=== PATIENT | female | born 1970 | race Caucasian/White ===

== ENCOUNTER 2017-06-11 14:02 | Inpatient (IN) | payer OTHER ==
[~2017-06-11] VITALS: Ht 154.9 cm; Wt 74.5 kg
[2017-06-11] MEDS ORDERED: ONDANSETRON INJ 2 MG/ML 2 ML VIAL IV STA (14:19)
[2017-06-11] MEDS ORDERED: KETOROLAC TROMETHAMINE 30 MG/ML VIAL IV STA (14:19)
[2017-06-11] MEDS ORDERED: SODIUM CHLORIDE 0.9% 1000ML 2,000 ML IV STA (14:19)
[2017-06-11] MEDS ORDERED: OPTIRAY 320 IV PRN (14:30)
[2017-06-11 14:31] LABS: BASO % 0.2 %; BASO ABS # 0.03 K/uL (0-0.2); EOS % 0.2 %; EOS ABS # 0.03 K/uL (0-0.5); HEMATOCRIT 42.1 % (37-47); HEMOGLOBIN 14.1 g/dL (12.0-16.0); IG# 0.07 K/uL (0.00-0.02); LYMPH % 10.2 %; LYMPH ABS # 1.91 K/uL (1.2-3.4); MEAN CELL VOLUME 86.1 fL (80-100); MEAN CORPUSCULAR HEMOGLOBIN 28.8 pg (25-34); MEAN CORPUSCULAR HGB CONC 33.5 g/dl (32-36); MEAN PLATELET VOLUME 9.5 fL (7.4-10.4); MONO % 5.5 %; MONO ABS # 1.03 K/uL (0.11-0.59); NEUT % 83.5 %; NEUT ABS # 15.67 K/uL (1.4-6.5); PLATELET COUNT 307 K/uL (130-400); RED CELL DISTRIBUTION WIDTH CV 12.9 % (11.5-14.5); RED CELL DISTRIBUTION WIDTH SD 40.7 fL (36.4-46.3); WHITE BLOOD COUNT 18.74 K/uL (4.8-10.8)
[2017-06-11 14:49] LABS: ALBUMIN 3.9 gm/dl (3.4-5.0); CALCIUM 10.9 mg/dl (8.5-10.1); CREATININE 1.19 mg/dl (0.60-1.20); POTASSIUM 3.6 mmol/L (3.5-5.1)
[2017-06-11 14:52] LABS: TOTAL PROTEIN 7.8 gm/dl (6.4-8.2)
[2017-06-11] MEDS ORDERED: MISCCAP80 PO (15:40)
[2017-06-11] MEDS ORDERED: MAGN400T6 PO (15:40)
[2017-06-11] MEDS ORDERED: FLUO10CA48 PO (15:40)
[2017-06-11] MEDS ORDERED: CHOL1000 PO (15:40)
--- NOTE | 2017-06-11 16:06 | EMERGENCY ROOM VISIT NOTE ---
History Report prepared by Sofie: Arturo Ugarte Under the Supervision of: Dr. Richard Ren M.D. First contact with patient: 14:15 Chief Complaint: ABDOMINAL PAIN Stated Complaint: PAIN TNEDERNESS IN LOWER RIGHT ABDOMIN Nursing Triage Summary: triage note: to reports right lower abd pain and nausea since last night. pt seen at [facility] and sent to ed for further eval. History of Present Illness The patient is a 46 year old female who presents to the Emergency Room with complaints of worsening abdominal pain that is localized to the right lower abdominal quadrant. The patient states that her pain began last night, but significantly worsened this morning when she woke up. She rates her current pain as a 7-8/10 in severity. She states that vomiting seems to relieve the pain for a short time, and the pain seems to radiate into the back intermittently. The patient also developed diarrhea last night, and began vomiting today at 1200. [facility], and was referred to the ED immediately. They gave her 2 oral Zofran tablets. The patient has no history of abdominal surgeries or diverticulitis. Source of History: patient Onset: Last Night Position: abdomen (RLQ) Symptom Intensity: 7-8/10 Timing: worsening Modifying Factors (Relieving): other (Vomiting) Associated Symptoms: + vomiting, + back pain (radiation from the abdomen), + diarrhea Review of Systems See HPI for pertinent positives & negatives. A total of 10 systems reviewed and were otherwise negative. Past Medical & Surgical Medical Problems: (1) Anxiety None significant. Family History Cancer Social History Smoking Status: Never Smoker Drug Use: none Marital Status: Housing Status: lives with family Occupation Status: employed Current/Historical Medications Scheduled Cholecalciferol (Vitamin D3), 1 TAB PO DAILY Fluoxetine (Prozac), 10 MG PO DAILY Magnesium Oxide (Mag-Ox), 400 MG PO DAILY Probiotic Product (Probiotic), 1 CAP PO DAILY Allergies Coded Allergies: No Known Allergies (Unverified , 06/11/17) Physical Exam Vital Signs Date Time Temp Pulse Resp B/P (MAP) Pulse Ox O2 Delivery O2 Flow Rate FiO2 06/11/17 16:05 82 20 120/56 100 Room Air 06/11/17 14:11 36.5 85 18 129/79 99 Room Air Physical Exam GENERAL: Occasional dry-heaving noted. Patient is in no acute distress. HEENT: No acute trauma, normocephalic atraumatic, mucous membranes moist, no nasal congestion, no scleral icterus. NECK: No stridor, no adenopathy, no meningismus, trachea is midline. LUNGS: Clear to auscultation bilaterally, no wheeze, no rhonchi, breath sounds equal. HEART: Without murmurs gallops or rubs, regular rate and rhythm. ABDOMEN: Soft, with moderate tenderness to palpation in the lower abdomen, in both lower quadrants. Mildly tender in the epigastrium. Bowel sounds positive, no hernias, no peritonitis. EXTREMITIES: No cyanosis or edema, full range of motion of all the joints without pain or difficulty, no signs for acute trauma. NEUROLOGIC: Oriented x 3, no acute motor or sensory deficits, no focal weakness. SKIN: No rash, no jaundice, no diaphoresis. Medical Decision & Procedures ER Provider Diagnostic Interpretation: Radiology results as stated below per my review and radiologist interpretation: CT OF THE ABDOMEN AND PELVIS WITH CONTRAST CLINICAL HISTORY: Abdominal pain. Evaluate for acute appendicitis. COMPARISON STUDY: None. TECHNIQUE: Following IV administration of 91 mL of Optiray-320, axial images of the abdomen and pelvis were obtained from the lung bases to the proximal femurs. Images were reviewed in the axial, sagittal, and coronal planes. IV contrast was administered without complication. A dose lowering technique was utilized adhering to the principles of ALARA. CT DOSE: 669.60 mGycm FINDINGS: Visualized portions of the lower chest demonstrate a 1 cm nodule within the lateral right breast which contains a peripheral calcification. This is shown on image 8 of 421. No pneumatosis, free air or portal venous gas is present. The liver, spleen, adrenal glands and pancreas are unremarkable. Note is made of moderate right hydronephrosis due to a 1 x 0.8 cm right ureteropelvic junction calculus. The right nephrogram is delayed. There is moderate right perinephric fluid. A few left renal calculi measure up to 4 mm. There are no left ureteral calculi. There is no evidence for a bowel obstruction. The appendix is not visualized but there is no right lower quadrant inflammation. A small amount of fluid with noted within the pelvis. A 2 cm rim-enhancing right adnexal lesion likely reflects a corpus luteal cyst. There are no suspicious osseous lesions. IMPRESSION: 1. 1 cm x 0.8 cm right ureteropelvic junction calculus that results in moderate right hydronephrosis and moderate perinephric fluid within delayed right nephrogram. 2. Left-sided nephrolithiasis. 3. 1 cm lateral right breast nodule which likely reflects a fibroadenoma however follow-up mammogram and ultrasound is recommended to exclude the less likely possibility of malignancy. 4. Nonvisualization of the appendix but no right lower quadrant inflammation. Electronically signed by: Elfego Hawkins M.D. 06/11/2017 4:02 PM Dictated Date/Time: 06/11/2017 3:54 PM Laboratory Results 06/11/17 14:20 Red Blood Count 4.89, Mean Corpuscular Volume 86.1, Mean Corpuscular Hemoglobin 28.8, Mean Corpuscular Hemoglobin Concent 33.5, Mean Platelet Volume 9.5, Neutrophils (%) (Auto) 83.5, Lymphocytes (%) (Auto) 10.2, Monocytes (%) (Auto) 5.5, Eosinophils (%) (Auto) 0.2, Basophils (%) (Auto) 0.2, Neutrophils # (Auto) 15.67, Lymphocytes # (Auto) 1.91, Monocytes # (Auto) 1.03, Eosinophils # (Auto) 0.03, Basophils # (Auto) 0.03 06/11/17 14:20 Test 06/11/17 14:20 06/11/17 14:28 White Blood Count 18.74 K/uL (4.8-10.8) Red Blood Count 4.89 M/uL (4.2-5.4) Hemoglobin 14.1 g/dL (12.0-16.0) Hematocrit 42.1 % (37-47) Mean Corpuscular Volume 86.1 fL (80-100) Mean Corpuscular Hemoglobin 28.8 pg (25-34) Mean Corpuscular Hemoglobin Concent 33.5 g/dl (32-36) Platelet Count 307 K/uL (130-400) Mean Platelet Volume 9.5 fL (7.4-10.4) Neutrophils (%) (Auto) 83.5 % Lymphocytes (%) (Auto) 10.2 % Monocytes (%) (Auto) 5.5 % Eosinophils (%) (Auto) 0.2 % Basophils (%) (Auto) 0.2 % Neutrophils # (Auto) 15.67 K/uL (1.4-6.5) Lymphocytes # (Auto) 1.91 K/uL (1.2-3.4) Monocytes # (Auto) 1.03 K/uL (0.11-0.59) Eosinophils # (Auto) 0.03 K/uL (0-0.5) Basophils # (Auto) 0.03 K/uL (0-0.2) RDW Standard Deviation 40.7 fL (36.4-46.3) RDW Coefficient of Variation 12.9 % (11.5-14.5) Immature Granulocyte % (Auto) 0.4 % Immature Granulocyte # (Auto) 0.07 K/uL (0.00-0.02) Anion Gap 8.0 mmol/L (3-11) Est Creatinine Clear Calc Drug Dose 55.7 ml/min Estimated GFR () 64.3 Estimated GFR (Non- 55.5 BUN/Creatinine Ratio 15.7 (10-20) Calcium Level 10.9 mg/dl (8.5-10.1) Total Bilirubin 0.4 mg/dl (0.2-1) Aspartate Amino Transf (AST/SGOT) 12 U/L (15-37) Alanine Aminotransferase (ALT/SGPT) 19 U/L (12-78) Alkaline Phosphatase 66 U/L (45-117) Total Protein 7.8 gm/dl (6.4-8.2) Albumin 3.9 gm/dl (3.4-5.0) Globulin 3.9 gm/dl (2.5-4.0) Albumin/Globulin Ratio 1.0 (0.9-2) Lipase 229 U/L (73-393) Human Chorionic Gonadotropin, Qual NEG (NEG) Urine Color YELLOW Urine Appearance CLEAR (CLEAR) Urine pH 6.5 (4.5-7.5) Urine Specific [place] 1.022 (1.000-1.030) Urine Protein NEG (NEG) Urine Glucose (UA) NEG (NEG) Urine Ketones 1+ (NEG) Urine Occult Blood 2+ (NEG) Urine Nitrite NEG (NEG) Urine Bilirubin NEG (NEG) Urine Urobilinogen NEG (NEG) Urine Leukocyte Esterase SMALL (NEG) Urine WBC (Auto) 1-5 /hpf (0-5) Urine RBC (Auto) 10-30 /hpf (0-4) Urine Hyaline Casts (Auto) 1-5 /lpf (0-5) Urine Epithelial Cells (Auto) 20-30 /lpf (0-5) Urine Bacteria (Auto) NEG (NEG) Laboratory results reviewed by me. Medications Administered Medications (Trade) Dose Ordered Sig/Leni Route Start Time Stop Time Status Last Admin Dose Admin Sodium Chloride 2,000 ml @ 999 mls/hr Q2H1M STAT IV 06/11/17 14:19 06/11/17 16:19 DC 06/11/17 14:32 999 MLS/HR Ondansetron HCl (Zofran Inj) 4 mg NOW STAT IV 06/11/17 14:19 06/11/17 14:21 DC 06/11/17 14:32 4 MG Ketorolac Tromethamine (Toradol Inj) 30 mg NOW STAT IV 06/11/17 14:19 06/11/17 14:21 DC 06/11/17 14:32 30 MG Morphine Sulfate (MoRPHine SULFATE INJ) 4 mg NOW STAT IV 06/11/17 16:18 06/11/17 16:19 DC 06/11/17 16:39 4 MG Promethazine HCl 6.25 mg/Sodium Chloride 50.25 ml @ 204 mls/hr NOW STAT IV 06/11/17 16:22 06/11/17 16:36 DC 06/11/17 16:39 204 MLS/HR Sodium Chloride 1,000 ml @ 125 mls/hr Q8H IV 06/11/17 17:30 07/11/17 17:29 06/11/17 17:50 125 MLS/HR Ceftriaxone Sodium (Rocephin Inj) 1 gm STK-MED ONCE .ROUTE 06/11/17 17:44 06/11/17 17:45 DC 06/11/17 17:50 1 GM ED Course 1416: The patient was evaluated in room A12A. A complete history and physical exam was performed. 1419: Ordered Toradol 30 mg IV, Zofran 4 mg IV, Sodium Chloride 2000 mL @ 999 mL /hr IV. 1613: I updated the patient at this time. She does not feel like she will be able to go home. I will page for the hospitalist. 1618: Ordered Morphine Sulfate 4 mg IV. 1622: Ordered Promethazine HCl 50.25 mL @ 204 mL/hr IV. 1648: I discussed the case with Dr[facility]. She will evaluate the patient for further treatment. Medical Decision Differential Diagnosis includes; Colitis, diverticulitis, appendicitis, mesenteric adenitis, food borne/viral illness, dehydration, electrolyte or metabolic abnormalities, pancreatitis, biliary colic. There is a leukocytosis at 18,000, this could be consistent with infection or just her stress and vomiting. No worrisome anemia. No significant electrolyte abnormality, kidney failure or hepatitis. The patient is not by our testing. Urinalysis shows some blood, no signs of infection. Abdominal and pelvis CT shows a large proximal right ureteral stone with hydronephrosis. There was no evidence for appendicitis or abscess. Patient received IV saline, IV Zofran. She was given IV Toradol. She eventually required IV morphine for pain and IV Phenergan for nausea. Patient has a very large right proximal ureteral stone. This is causing her difficulty. Her symptoms are difficult to control, the stone is quite large and will likely require urologic intervention. I spoke with the patient, I talked with case management. I discussed the case with the on-call hospitalist. Hospitalization is warranted. Medication Reconcilliation Current Medication List: was personally reviewed by me Blood Pressure Screening Patient's blood pressure: Normal blood pressure Consults Time Called: 1641 Consulting Physician: Dr. Hermes Orta Returned Call: [phone] I discussed the case with Dr. Hermes Orta. She will evaluate the patient for further treatment. Impression Primary Impression: Renal colic Additional Impressions: Diarrhea Leukocytosis Vomiting Scribe Attestation The scribe's documentation has been prepared under my direction and personally reviewed by me in its entirety. I confirm that the note above accurately reflects all work, treatment, procedures, and medical decision making performed by me. Departure Information Dispostion Being Evaluated By Hospitalist Referrals No Doctor, Assigned (PCP) Patient Instructions My [facility] Problem Qualifiers
[2017-06-11] MEDS ORDERED: MoRPHine SULFATE 4 MG/ML 1 ML CARP\\VIAL IV STA (16:18)
[2017-06-11] MEDS ORDERED: PROMETHAZINE HCL INJ 6.25 MG in SODIUM CHLORIDE 0.9% 50ML 50 ML IV STA (16:22)
[2017-06-11] MEDS ORDERED: ONDANSETRON INJ 2 MG/ML 2 ML VIAL IV PRN (17:30)
[2017-06-11] MEDS ORDERED: MoRPHine SULFATE 4 MG/ML 1 ML CARP\\VIAL IV PRN (17:30)
[2017-06-11] MEDS ORDERED: ACETAMINOPHEN 325 MG TAB PO PRN (17:30)
[2017-06-11] MEDS ORDERED: CEFTRIAXONE SOD INJ 1 GM ADDVIAL ONE (17:44)
[2017-06-11] MEDS: SODIUM CHLORIDE 0.9% 1000ML 1,000 ML IV SCH (17:50)
[2017-06-11] MEDS ORDERED: CEFTRIAXONE SOD INJ 1 GM in DEXTROSE 5% ADD-VANTAGE 50ML 50 ML IV ONE (18:00)
--- NOTE | 2017-06-11 18:25 | History and Physical ---
History & Physical Date & Time of Service: Jun 11, 2017 ~ 17:00 Chief Complaint: RLQ pain, nausea, vomiting Primary Care Physician: No Doctor, Assigned History of Present Illness 46-year-old female who presents to the ER with a chief complaint of right lower quadrant abdominal pain, nausea, and vomiting. Patient reports that she has been having intermittent right lower quadrant pain for the past week. Yesterday pain became more persistent and she also developed right flank pain. Today she had severe nausea and several episodes of vomiting. She denies hematemesis or coffee-ground emesis. She has felt chilled however did not take her temperature at home. She denies any dysuria, urinary hesitancy, or hematuria. She reports she was treated for urinary tract infection approximately 1 month ago. Patient denies chest pain or shortness of breath. No lightheadedness, dizziness, diaphoresis, or syncopal events. In the ED patient had CT ABD/pelvis/showing a 1 cm X 0.8 cm right UPJ renal calculi with moderate hydronephrosis. WBC 18 K, renal functions normal, vital signs stable. UA does not appear infected. Patient was given IVF, IV Zofran, IV promethazine, and IV morphine. Patient reports improvement in her symptoms. Past Medical/Surgical History Medical Problems: (1) Anxiety Family History FH: thyroid cancer FATHER Social History Smoking Status: Never Smoker Alcohol Use: occasionally Marital Status: Allergies Coded Allergies: No Known Allergies (Unverified , 06/11/17) Home Medications Scheduled Cholecalciferol (Vitamin D3), 1 TAB PO DAILY Fluoxetine (Prozac), 10 MG PO DAILY Magnesium Oxide (Mag-Ox), 400 MG PO DAILY Probiotic Product (Probiotic), 1 CAP PO DAILY Review of Systems ROS per HPI, all other systems reviewed and negative Physical Exam Vital Signs Date Time Temp Pulse Resp B/P (MAP) Pulse Ox O2 Delivery O2 Flow Rate FiO2 06/11/17 16:05 82 20 120/56 100 Room Air 06/11/17 14:11 36.5 85 18 129/79 99 Room Air General Appearance: WD/WN, no apparent distress Head: normocephalic, atraumatic Eyes: normal inspection, EOMI, sclerae normal ENT: hearing grossly normal, + pertinent finding (Mucous membranes moist) Neck: supple, no JVD, trachea midline Respiratory/Chest: lungs clear, normal breath sounds, no respiratory distress Cardiovascular: regular rate, rhythm, no edema, normal peripheral pulses Abdomen/GI: normal bowel sounds, non tender, soft, no organomegaly Back: no CVA tenderness Extremities/Musculoskelatal: normal inspection, no calf tenderness, normal capillary refill Neurologic/Psych: no motor/sensory deficits, alert, normal mood/affect, oriented x 3 Skin: normal color, warm/dry Diagnostics Laboratory Results Results Past 24 Hours Test 06/11/17 14:20 06/11/17 14:28 Range/Units White Blood Count 18.74 4.8-10.8 K/uL Red Blood Count 4.89 4.2-5.4 M/uL Hemoglobin 14.1 12.0-16.0 g/dL Hematocrit 42.1 37-47 % Mean Corpuscular Volume 86.1 80-100 fL Mean Corpuscular Hemoglobin 28.8 25-34 pg Mean Corpuscular Hemoglobin Concent 33.5 32-36 g/dl Platelet Count 307 130-400 K/uL Mean Platelet Volume 9.5 7.4-10.4 fL Neutrophils (%) (Auto) 83.5 % Lymphocytes (%) (Auto) 10.2 % Monocytes (%) (Auto) 5.5 % Eosinophils (%) (Auto) 0.2 % Basophils (%) (Auto) 0.2 % Neutrophils # (Auto) 15.67 1.4-6.5 K/uL Lymphocytes # (Auto) 1.91 1.2-3.4 K/uL Monocytes # (Auto) 1.03 0.11-0.59 K/uL Eosinophils # (Auto) 0.03 0-0.5 K/uL Basophils # (Auto) 0.03 0-0.2 K/uL RDW Standard Deviation 40.7 36.4-46.3 fL RDW Coefficient of Variation 12.9 11.5-14.5 % Immature Granulocyte % (Auto) 0.4 % Immature Granulocyte # (Auto) 0.07 0.00-0.02 K/uL Sodium Level 137 136-145 mmol/L Potassium Level 3.6 3.5-5.1 mmol/L Chloride Level 107 98-107 mmol/L Carbon Dioxide Level 22 21-32 mmol/L Anion Gap 8.0 3-11 mmol/L Blood Urea Nitrogen 19 7-18 mg/dl Creatinine 1.19 0.60-1.20 mg/dl Est Creatinine Clear Calc Drug Dose 55.7 ml/min Estimated GFR () 64.3 Estimated GFR (Non- 55.5 BUN/Creatinine Ratio 15.7 10-20 Random Glucose 107 70-99 mg/dl Calcium Level 10.9 8.5-10.1 mg/dl Total Bilirubin 0.4 0.2-1 mg/dl Aspartate Amino Transf (AST/SGOT) 12 15-37 U/L Alanine Aminotransferase (ALT/SGPT) 19 12-78 U/L Alkaline Phosphatase 66 45-117 U/L Total Protein 7.8 6.4-8.2 gm/dl Albumin 3.9 3.4-5.0 gm/dl Globulin 3.9 2.5-4.0 gm/dl Albumin/Globulin Ratio 1.0 0.9-2 Lipase 229 73-393 U/L Human Chorionic Gonadotropin, Qual NEG NEG Urine Color YELLOW Urine Appearance CLEAR CLEAR Urine pH 6.5 4.5-7.5 Urine Specific [place] 1.022 1.000-1.030 Urine Protein NEG NEG Urine Glucose (UA) NEG NEG Urine Ketones 1+ NEG Urine Occult Blood 2+ NEG Urine Nitrite NEG NEG Urine Bilirubin NEG NEG Urine Urobilinogen NEG NEG Urine Leukocyte Esterase SMALL NEG Urine WBC (Auto) 1-5 0-5 /hpf Urine RBC (Auto) 10-30 0-4 /hpf Urine Hyaline Casts (Auto) 1-5 0-5 /lpf Urine Epithelial Cells (Auto) 20-30 0-5 /lpf Urine Bacteria (Auto) NEG NEG Microbiology Results 06/11/17 Urine Culture, Received Pending Diagnostic Radiology CT ABD/PELVIS IMPRESSION: 1. 1 cm x 0.8 cm right ureteropelvic junction calculus that results in moderate right hydronephrosis and moderate perinephric fluid within delayed right nephrogram. 2. Left-sided nephrolithiasis. 3. 1 cm lateral right breast nodule which likely reflects a fibroadenoma however follow-up mammogram and ultrasound is recommended to exclude the less likely possibility of malignancy. 4. Nonvisualization of the appendix but no right lower quadrant inflammation. Impression Assessment and Plan RIGHT RENAL CALCULI WITH HYDRONEPHROSIS -Admit patient to [facility] -Patient presenting with right lower quadrant and right flank pain; in the ED CT ABD/pelvis showing 1 cm x 0.8 cm right UPJ renal calculi with moderate hydronephrosis -WBC 18 K, UA does not appear infected however will obtain urine culture -Renal functions normal -Case discussed with Dr. Dos Santos, who will evaluate the patient tonight for possible OR -N.p.o. for now until evaluated by urology -IVF, as needed pain medications and anti-emetics -Empiric ceftriaxone ANXIETY -Continue fluoxetine DVT PROPHYLAXIS -SCDs in light of invasive procedure DISPOSITION -In my clinical judgment this beneficiary meets acute admission criteria, established by [facility], that includes being hospitalized through two midnights. ATTENDING ADDENDUM: Patient seen and examined care coordinated with Marie GARRIDO 46-year-old female presented with nausea vomiting, right lower quadrant/flank pain CT abdomen pelvis without contrast: 1 cm in 2.1 cm right ureteropelvic junction stone leading to moderate right sided hydronephrosis White count elevated to 18,000 Physical exam: Please refer to exam done by Marie TELLO ASSESSMENT AND PLAN Right-sided renal stone: -No prior history of kidney stone -Obstructed 1 cm renal stone leading to right-sided hydronephrosis -Order for n.p.o., IV fluids -Urology consult requested Nausea vomiting -Due to above -N.p.o. until evaluated by urology -IV fluids, antiemetics, pain control CODE STATUS: Full code DVT prophylaxis: Low risk SCDs and teds, encourage ambulation Pharmacological anticoagulation avoided, for possible urological procedure Edyta Mirza MD Resuscitation Status VTE Prophylaxis Will order VTE Prophylaxis: Yes
--- NOTE | 2017-06-11 18:49 | Urology Consultation ---
History General Date of Service: Jun 11, 2017. Primary Care Physician: No Doctor, Assigned History of Present Illness 46 y/o female with no history of stone disease presents with pain starting 5 days ago that was mild but came and went. She thought it was indigestion . Today around lunch the pain intensified and she began to vomit . She presented to the ER and had a non contrast CT that showed a 1 cm proximal r ureteral stone. She had a Uti a month ago and a wbc count of 18 here . Her urine is trace leukocyte positive w/o wbc or bacteria on micro . She denies fever but felt chilled here possibly associated with pain. She is here for the weekend and is from [place]. I reviewed her option of a stent tonite given the size and location of the stone w subsequent ESWL or ureteroscopy or waiting til n the AM to see if the pain resolves and she can be discharged or to see if the stone migrates to the distal ureter. She is considering the options now Laboratory Labs were reviewed and are within normal limits unless listed below. Labs are available in the chart and at [facility] Family History FH: thyroid cancer FATHER Social History Hx Tobacco Use In Past Year?: No Alcohol: socially Marital status: Allergies Coded Allergies: No Known Allergies (Unverified , 06/11/17) Medications Home Medications: Home Meds and Scripts Medications Dose Route/Sig Max Daily Dose Days Date Category Mag-Ox (Magnesium Oxide) 400 Mg Tab 400 Mg PO DAILY 06/11/17 Reported Probiotic (Probiotic Product) 1 Cap Cap 1 Cap PO DAILY 06/11/17 Reported Vitamin D3 (Cholecalciferol) 1,000 Unit Tab 1 Tab PO DAILY 06/11/17 Reported Prozac (Fluoxetine HCl) 10 Mg Cap 10 Mg PO DAILY 06/11/17 Reported Inpatient Medications: Current Inpatient Medications Medications (Trade) Dose Ordered Sig/Leni Route Start Time Stop Time Status Last Admin Dose Admin Ioversol (Optiray 320) 125 ml UD PRN IV 06/11/17 14:30 06/15/17 14:29 Acetaminophen (Tylenol Tab) 650 mg Q4H PRN PO 06/11/17 17:30 07/11/17 17:29 Ondansetron HCl (Zofran Inj) 4 mg Q6H PRN IV 06/11/17 17:30 07/11/17 17:29 Sodium Chloride 1,000 ml @ 125 mls/hr Q8H IV 06/11/17 17:30 07/11/17 17:29 06/11/17 17:50 125 MLS/HR Morphine Sulfate (MoRPHine SULFATE INJ) 4 mg Q4H PRN IV 06/11/17 17:30 06/25/17 17:29 Ceftriaxone Sodium 1 gm/ Dextrose 50 ml @ 100 mls/hr Q24H IV 06/12/17 17:45 06/22/17 17:44 UNV Cholecalciferol (Vitamin D Tab) 1,000 inter.unit DAILY PO 06/12/17 09:00 07/12/17 08:59 Fluoxetine HCl (Prozac Cap) 10 mg DAILY PO 06/12/17 09:00 07/12/17 08:59 Magnesium Oxide (Mag-Ox Tab) 400 mg DAILY PO 06/12/17 09:00 07/12/17 08:59 Lactobacillus Acidophilus (Floranex Tab) 1 tab DAILY PO 06/12/17 09:00 07/12/17 08:59 Review of Systems Review of Systems Constitutional: No see HPI, No fever, No chills, No frequent headaches, No weight loss, No problem reported Eyes: No see HPI, No blurred vision, No double vision, No eye pain, No loss of night vision, No problem reported Neurological: No see HPI, No dizzy, No passing out, No numbness/tingling, No seizures, No problem reported Gastrointestinal: + abdominal pain, + vomiting Cardiovascular: No see HPI, No heart murmur, No chest pain, No angina, No irregular heartbeat, No palpitations, No swelling ankles/feet, No problem reported Respiratory: No see HPI, No shortness of breath, No wheezing, No coughing up blood, No chronic cough, No problem reported Skin: No see HPI, No rash, No boils, No dry skin, No problem reported Musculoskeletal: No see HPI, No joint pain, No neck pain, No back pain, No arthritis, No problem reported Blood / Lymphatic: No see HPI, No bleed easily, No bruise easily, No swollen glands, No problem reported Ears / Nose / Throat: No see HPI, No hearing loss, No sinus, No hoarse voice, No sore throat, No problem reported Psychologic / Mental: + nervous Female : No see HPI, No frequent urination, No painful urination, No urinary retention, No weak stream, No blood in urine, No leaking urine, No infections, No kidney stones, No abnormal vaginal bleeding, No vaginal discharge, No problem reported Physical Exam Vital Signs: Vital Signs Past 12 Hours Date Time Temp Pulse Resp B/P (MAP) Pulse Ox O2 Delivery O2 Flow Rate FiO2 06/11/17 18:28 78 20 128/62 100 06/11/17 16:05 82 20 120/56 100 Room Air 06/11/17 14:11 36.5 85 18 129/79 99 Room Air Physical Exam: General Appearance: + moderate distress Eyes: bilateral eyes normal inspection, bilateral eyes PERRL, bilateral eyes EOMI ENT: normal ENT inspection, hearing grossly normal, TMs normal, pharynx normal Neck: supple, no adenopathy, thyroid normal, no JVD Respiratory/Chest: chest non-tender, lungs clear, normal breath sounds, no respiratory distress, no accessory muscle use Cardiovascular: no edema Extremities: normal range of motion, non-tender, normal inspection, no pedal edema, no calf tenderness, normal capillary refill Neurologic/Psychiatric: portable track line marker II-XII nml as tested, no motor/sensory deficits, alert, normal mood/affect, oriented x 3 Skin: normal color, warm/dry, no rash Lymphatic: no adenopathy Assessment & Plan Assessment & Plan Treatment Planned: cystoscopy w/ stent Pt will decide between stent tonite given stone size and possibility of developing infection versus waiting overnite for am evaluation w kub and for pain . Explained no absolute right answer and answered all questions and options to the best of my ability
[2017-06-11 19:21] VITALS: O2SAT 95
[2017-06-11] MEDS ORDERED: Cysto-Conray II 17.2% 250ML BOTTLE ONE (19:27)
[2017-06-11] MEDS ORDERED: FENTANYL CITRATE INJ 50 MCG/1 ML 2 ML VIAL ONE (19:49)
[2017-06-11] MEDS ORDERED: MIDAZOLAM HCL 1 MG/ML 2ML VIAL ONE ×2 (19:49→19:57)
[2017-06-11] MEDS ORDERED: LIDOCAINE HCL 2% 2 ML VIAL (20MG/ML) ONE (19:57)
[2017-06-11] MEDS ORDERED: PROPOFOL IV EMULSION 10 MG/ML 20 ML VIAL IV ONE (19:57)
--- NOTE | 2017-06-11 20:24 | [facility] Post Operative Brief Note ---
Immediate Operative Summary Operative Date Jun 11, 2017. Pre-Operative Diagnosis Right ureteral stone Post-Operative Diagnosis Right ureteral stone Procedure(s) Performed Cystoscopy, right ureteral stent placement Surgeon Dr. Dos Santos [employer] Analyst Surgeon(s) none Estimated Blood Loss 0cc Findings Consistent with Post-Op Diagnosis Specimens None Drains 5 by 24 stent Anesthesia Type MAC Disposition Disposition: Recovery Room / PACU
--- NOTE | 2017-06-11 20:30 | DIAGNOSTIC IMAGING REPORT ---
RETROGRADE INCLUDES KUB CLINICAL HISTORY: CYSTO nephrocalcinosis TECHNIQUE: Image intensifier COMPARISON STUDY: CT abdomen and pelvis 06/11/2017 FINDINGS: Retrograde opacification of the upper right renal collecting system followed by successful stent placement. IMPRESSION: Retrograde opacification of the upper right renal collecting system followed by successful stent placement The above report was generated using voice recognition software. It may contain grammatical, syntax or spelling errors. Electronically signed by: Mariano Samson M.D. 06/11/2017 8:29 PM Dictated Date/Time: 06/11/2017 8:28 PM
--- NOTE | 2017-06-11 20:40 | Anesthesiology Progress Note ---
Anesthesia Post Op Note Date & Time Jun 11, 2017 at 20:40 Vital Signs Pain Intensity: 0 Vital Signs Past 12 Hours Date Time Temp Pulse Resp B/P (MAP) Pulse Ox O2 Delivery O2 Flow Rate FiO2 06/11/17 20:30 80 20 104/61 97 Nasal Cannula 2 06/11/17 20:20 36.2 76 19 92/48 (60) 97 Oxymask 10 06/11/17 19:21 36.5 79 16 100/68 95 06/11/17 19:09 79 16 100/68 95 Room Air 06/11/17 18:28 78 20 128/62 100 06/11/17 16:05 82 20 120/56 100 Room Air 06/11/17 14:11 36.5 85 18 129/79 99 Room Air Notes Mental Status: alert / awake / arousable, participated in evaluation Pt Amnestic to Procedure: Yes Nausea / Vomiting: adequately controlled Pain: adequately controlled Airway Patency, RR, SpO2: stable & adequate BP & HR: stable & adequate Hydration State: stable & adequate Anesthetic Complications: no major complications apparent
[2017-06-11 21:00] VITALS: BP 110/69; PULSE 70; TEMP 36.7; O2SAT 100; Ht 154.9 cm; Wt 74.5 kg
[2017-06-11 21:30] VITALS: BP 121/82; PULSE 65; TEMP 36.9; O2SAT 100
[2017-06-11] MEDS ORDERED: PHENAZOPYRIDINE HCL 100 MG TAB PO PRN (22:00)
[2017-06-11 22:08] VITALS: BP 118/78; PULSE 65; TEMP 37; O2SAT 100
[2017-06-11] MEDS: TRAMADOL HCL 50 MG TAB PO PRN (22:57)
[2017-06-11 23:12] VITALS: BP 116/72; PULSE 66; TEMP 37.1; O2SAT 98
[2017-06-12 00:08] VITALS: BP 105/67; PULSE 66; TEMP 37; O2SAT 98
--- NOTE | 2017-06-12 01:08 | OPERATIVE REPORT ---
DATE OF OPERATION: 06/11/2017 PROCEDURE PERFORMED: Cystoscopy and right stent. PREOPERATIVE DIAGNOSES: Right ureteral stone with elevated white blood cell count and persistent ongoing pain with nausea and vomiting. POSTOPERATIVE DIAGNOSES: Same. SURGEON: Lobito Dos Santos MD. ANESTHESIA: Sedation. INDICATIONS: The patient is a 46-year-old female with pain for 4-5 days that became acute and severe with nausea and vomiting around noon today. She presented to the Emergency Room, has required narcotics. Because her pain was ongoing, she also had somewhat of an elevated white blood cell count and visits from out of town. I gave them option of placing a stent tonight because the stone was measured to be 1 cm, and I was concerned that with the elevated white blood cell count, history of urinary tract infection in the past month and leukocyte positive dip, that she could get febrile overnight. I also gave her the option of waiting until the morning and seeing if the pain went away, to discharge without a stent, but she wished to proceed with a stent. DESCRIPTION OF THE PROCEDURE: She was taken to the cystoscopy suite. She was given sedation, placed in dorsal lithotomy position, and prepped and draped in the usual sterile fashion and cystoscopy was performed. A retrograde was performed which showed hydronephrosis on the right side with what appeared to be a proximal stone, approximately 1 cm, maybe slightly less, in the proximal ureter. A Dual-Flex guidewire was passed beyond the stone and then a 5-[place] 24-stent was passed beyond the stone and into the proximal ureter. When I removed the wire, the stent did drop down into a fairly wide UPJ. There was a reasonable curl in the bladder. The patient had her bladder emptied and she was transferred to the recovery room in stable condition. I attest to the content of the Intraoperative Record and any orders documented therein. Any exception s are noted below.
[2017-06-12] MEDS: SODIUM CHLORIDE 0.9% 1000ML 1,000 ML IV SCH ×2 (01:13→09:08)
[2017-06-12 03:31] VITALS: BP 102/65; PULSE 71; TEMP 37; O2SAT 98
[2017-06-12 07:07] LABS: HEMOGLOBIN 12.2 g/dL (12.0-16.0); MEAN CELL VOLUME 86.4 fL (80-100); MEAN CORPUSCULAR HEMOGLOBIN 28.5 pg (25-34); MEAN PLATELET VOLUME 9.5 fL (7.4-10.4); PLATELET COUNT 233 K/uL (130-400); RED CELL DISTRIBUTION WIDTH CV 13.2 % (11.5-14.5); RED CELL DISTRIBUTION WIDTH SD 42.3 fL (36.4-46.3); WHITE BLOOD COUNT 8.28 K/uL (4.8-10.8)
[2017-06-12 07:13] LABS: CALCIUM 8.8 mg/dl (8.5-10.1); CREATININE 0.73 mg/dl (0.60-1.20); POTASSIUM 3.8 mmol/L (3.5-5.1)
--- NOTE | 2017-06-12 07:14 | DIAGNOSTIC IMAGING REPORT ---
KUB CLINICAL HISTORY: r ureteral stone ureteral calculus COMPARISON STUDY: CT 06/11/2017. FINDINGS: Interval placement of a right ureteral stent in good position. The right ureteral pelvic junction calcification previous described currently is positioned at the juncture of the mid and lower pole of the right kidney. Bowel pattern is nonobstructive. Left kidney is poorly seen. IMPRESSION: Calcification previously described is now within the lower aspect of the right renal collecting system. Right ureteral stent in good position. The above report was generated using voice recognition software. It may contain grammatical, syntax or spelling errors. Electronically signed by: Mariano Samson M.D. 06/12/2017 7:13 AM Dictated Date/Time: 06/12/2017 7:11 AM
[2017-06-12 07:23] VITALS: BP 104/69; PULSE 70; TEMP 36.7; O2SAT 99
[2017-06-12] MEDS: TRAMADOL HCL 50 MG TAB PO PRN (07:45)
[2017-06-12] MEDS ORDERED: LACTOBACILLUS ACIDOPHILUS (FLORANEX) TAB PO SCH (09:00)
[2017-06-12] MEDS ORDERED: MAGNESIUM OXIDE 400 MG TAB PO SCH (09:00)
[2017-06-12] MEDS ORDERED: CHOLECALCIFEROL 1000 INTER.UNIT TAB PO SCH (09:00)
[2017-06-12] MEDS ORDERED: FLUOXETINE HCL 10 MG CAP PO SCH (09:00)
--- NOTE | 2017-06-12 11:51 | Progress Note ---
Subjective Date of Service: Jun 12, 2017. Subjective Pt evaluation today including: conversation w/ patient, conversation w/ family , physical exam, chart review, conversation w/ [employer] consultant pt feels better some discomfort and need to void more frequently. White cell count nl . Pt from [place] and ready to go home . Stone in kidney now and in good position Objective Vital Signs Date Time Temp Pulse Resp B/P (MAP) Pulse Ox O2 Delivery O2 Flow Rate FiO2 06/12/17 07:38 Room Air 06/12/17 07:23 36.7 70 16 104/69 (81) 99 Room Air 06/12/17 03:31 37.0 71 16 102/65 (77) 98 Room Air 06/12/17 00:08 37.0 66 16 105/67 (80) 98 Room Air 06/11/17 23:12 37.1 66 16 116/72 (87) 98 Room Air 06/11/17 23:00 Nasal Cannula 06/11/17 22:33 Nasal Cannula 2.0 06/11/17 22:08 37.0 65 18 118/78 (91) 100 Nasal Cannula 2.0 06/11/17 21:30 36.9 65 18 121/82 (95) 100 Nasal Cannula 2.0 06/11/17 21:00 36.7 70 16 110/69 (83) 100 Nasal Cannula 2.0 06/11/17 21:00 Nasal Cannula 2.0 06/11/17 21:00 Nasal Cannula 2.0 06/11/17 20:40 36.2 78 18 105/65 99 Nasal Cannula 2 06/11/17 20:30 80 20 104/61 97 Nasal Cannula 2 06/11/17 20:20 36.2 76 19 92/48 (60) 97 Oxymask 10 06/11/17 19:21 36.5 79 16 100/68 95 06/11/17 19:09 79 16 100/68 95 Room Air 06/11/17 18:28 78 20 128/62 100 06/11/17 16:05 82 20 120/56 100 Room Air 06/11/17 14:11 36.5 85 18 129/79 99 Room Air Laboratory Results Last 24 Hours Test 06/11/17 14:20 06/11/17 14:28 06/12/17 06:25 White Blood Count 18.74 K/uL 8.28 K/uL Red Blood Count 4.89 M/uL 4.28 M/uL Hemoglobin 14.1 g/dL 12.2 g/dL Hematocrit 42.1 % 37.0 % Mean Corpuscular Volume 86.1 fL 86.4 fL Mean Corpuscular Hemoglobin 28.8 pg 28.5 pg Mean Corpuscular Hemoglobin Concent 33.5 g/dl 33.0 g/dl Platelet Count 307 K/uL 233 K/uL Mean Platelet Volume 9.5 fL 9.5 fL Neutrophils (%) (Auto) 83.5 % Lymphocytes (%) (Auto) 10.2 % Monocytes (%) (Auto) 5.5 % Eosinophils (%) (Auto) 0.2 % Basophils (%) (Auto) 0.2 % Neutrophils # (Auto) 15.67 K/uL Lymphocytes # (Auto) 1.91 K/uL Monocytes # (Auto) 1.03 K/uL Eosinophils # (Auto) 0.03 K/uL Basophils # (Auto) 0.03 K/uL RDW Standard Deviation 40.7 fL 42.3 fL RDW Coefficient of Variation 12.9 % 13.2 % Immature Granulocyte % (Auto) 0.4 % Immature Granulocyte # (Auto) 0.07 K/uL Sodium Level 137 mmol/L 140 mmol/L Potassium Level 3.6 mmol/L 3.8 mmol/L Chloride Level 107 mmol/L 110 mmol/L Carbon Dioxide Level 22 mmol/L 26 mmol/L Anion Gap 8.0 mmol/L 5.0 mmol/L Blood Urea Nitrogen 19 mg/dl 14 mg/dl Creatinine 1.19 mg/dl 0.73 mg/dl Est Creatinine Clear Calc Drug Dose 55.7 ml/min 90.8 ml/min Estimated GFR () 64.3 116.1 Estimated GFR (Non- 55.5 100.2 BUN/Creatinine Ratio 15.7 18.8 Random Glucose 107 mg/dl 91 mg/dl Calcium Level 10.9 mg/dl 8.8 mg/dl Total Bilirubin 0.4 mg/dl Aspartate Amino Transf (AST/SGOT) 12 U/L Alanine Aminotransferase (ALT/SGPT) 19 U/L Alkaline Phosphatase 66 U/L Total Protein 7.8 gm/dl Albumin 3.9 gm/dl Globulin 3.9 gm/dl Albumin/Globulin Ratio 1.0 Lipase 229 U/L Human Chorionic Gonadotropin, Qual NEG Urine Color YELLOW Urine Appearance CLEAR Urine pH 6.5 Urine Specific [place] 1.022 Urine Protein NEG Urine Glucose (UA) NEG Urine Ketones 1+ Urine Occult Blood 2+ Urine Nitrite NEG Urine Bilirubin NEG Urine Urobilinogen NEG Urine Leukocyte Esterase SMALL Urine WBC (Auto) 1-5 /hpf Urine RBC (Auto) 10-30 /hpf Urine Hyaline Casts (Auto) 1-5 /lpf Urine Epithelial Cells (Auto) 20-30 /lpf Urine Bacteria (Auto) NEG Prothrombin Time 10.6 SECONDS Prothromb Time International Ratio 1.0 Assessment and Plan discharge with meds today take disc with films and f/u w urology in [place] on Wednesday
[2017-06-12 11:53] VITALS: BP 104/69; PULSE 70; TEMP 36.7; O2SAT 99
[2017-06-12] MEDS ORDERED: HYDR-3419 PO (11:53)
--- NOTE | 2017-06-12 11:55 | Discharge Instructions ---
Discharge Instructions Date of Service Jun 12, 2017. Admission Reason for Admission: Renal Calculi Discharge Discharge Diagnosis / Problem: r renal stone with r stent Discharge Goals Goal(s): Decrease discomfort, Increase independence, Improve disease control Activity Recommendations Activity Limitations: per Instructions/Follow-up section (no driving on narcotics) . Current Hospital Diet Patient's current hospital diet: Regular Diet Discharge Diet Recommended Diet: Regular Diet Procedures Procedures Performed: Cystoscopy, right ureteral stent placement Pending Studies Studies pending at discharge: no Medical Emergencies . Who to Call and When: Medical Emergencies: If at any time you feel your situation is an emergency, please call 911 immediately. . Non-Emergent Contact Non-Emergency issues call your: Urologist Call Non-Emergent contact if: temperature is above 100.5, your pain is not controlled . . "Provider Documentation" section prepared by Lobito Dos Santos. . Senior Advisory Recommendations Senior Advisory Recommendations: call urology in [place] Wednesday
--- NOTE | 2017-06-12 12:12 | DISCHARGE SUMMARY ---
HISTORY OF PRESENTATION AND HOSPITAL COURSE: The patient is a 46-year-old female who presented yesterday evening with severe right flank pain and elevated white blood cell count. She had previous urinary tract infection a month ago and was leukocyte positive. She had nausea and vomiting prior to admission and again had intractable pain that had begun intermittently with less severe pain 5 days earlier. She presented with a [address] scan. I discussed the options with her including placing in stents since she was out of town for subsequent treatment, follow up in the morning to see if her pain resolved enough for discharge without a stent, follow up in the morning to see whether the pain was severe with the stent if it had not moved, and follow up in the morning with a KUB if the stone had gone into distal ureter to discuss possible semi-rigid ureteroscopy at that time. The patient elected to have a stent last night. The stent was placed. This morning she is much more comfortable, her white blood cell count is normal, there is no evidence of any infection, her fever has been normal and we agreed to discharge her with followup at urology in [place]. I did discuss with her staying off aspirin and we are going get her ____ together so that she possibly could have lithotripsy at a later time and/or ureteroscopy if it is felt appropriate by the [place] urologist. I have discussed this with the hospitalist who admitted the patient.
[2017-06-12] MEDS ORDERED: CEFTRIAXONE SOD INJ 1 GM in DEXTROSE 5% ADD-VANTAGE 50ML 50 ML IV SCH (17:00)
== END 2017-06-12 12:52 | disposition home or self-care (01) | DRG 694 ==
LOC: C.EDB 14:05 → C.MSW 17:27 → ENRESERV 18:08
PROVIDERS: ADMIT Hospitalist; ATTEND Internal Medicine
PROC: 0T768DZ Dilation of Right Ureter with Intraluminal Device, Via Natural or Artificial Opening Endoscopic (ICD-10-PCS; principal; 2017-06-11 19:11)
DX: N20.1 Calculus of ureter (principal); D72.829 Elevated white blood cell count, unspecified; F41.9 Anxiety disorder, unspecified; E66.9 Obesity, unspecified; Z68.31 Body mass index [BMI] 31.0-31.9, adult; Z87.440 Personal history of urinary (tract) infections; Z79.899 Other long term (current) drug therapy; Z80.8 Family history of malignant neoplasm of other organs or systems